=== PATIENT | male | born 1950 | race Caucasian/White ===

== ENCOUNTER 2021-02-19 11:27 | Emergency (ER) | payer OTHER, BC ==
[2021-02-19 12:07] VITALS: BP 107/83; PULSE 81; TEMP 98; BMI 25.1
== END 2021-02-19 14:22 | disposition home or self-care (01) ==
LOC: FER 11:27
DX: S52.022A Displaced fracture of olecranon process without intraarticular extension of left ulna, initial encounter for closed fracture (principal); Y93.H1 Activity, digging, shoveling and raking
CPT/HCPCS: 73070-TC-LT-FY; 73090-TC-LT-FY; 73110-TC-LT-FY; 73130-TC-LT-FY; 99285-25